=== PATIENT | female | born 1985 | race Two or more races ===

== ENCOUNTER 2024-08-02 09:45 | Inpatient (IN) | payer OTHER ==
[~2024-08-02] VITALS: Ht 165.1 cm; Wt 99.8 kg
[~2024-08-02 09:45] MED LIST: ALLEGRA ALLERG180 MG PO
[2024-08-02 10:56] VITALS: BP 93/56
[2024-08-02 11:07] VITALS: BP 118/82
[2024-08-02 11:15] LABS: HEMATOCRIT 38.2 % (36.0-45.00); HEMOGLOBIN 12.5 g/dL (12.0-15.00); MEAN CELL VOLUME 79.5 fL (80.00-100.00); MEAN CORPUSCULAR HEMOGLOBIN 26.1 pg (27.00-32.0); MEAN CORPUSCULAR HGB CONC 32.8 g/dl (32.0-36.0); PLATELET COUNT 412 K/uL (150-450); RED CELL DISTRIBUTION WIDTH 15.3 % (11.5-14.5)
[2024-08-02 11:16] LABS: PH,URINE 6.5 (5.0-8.0); URINE APPEARANCE Cloudy; URINE BILIRRUBIN Negative (NEGATIVE); URINE BLOOD Negative; URINE COLOR Yellow; URINE GLUCOSE Negative (NEGATIVE); URINE KETONE Negative (NEGATIVE); URINE LEUKOCYTE Small; URINE NITRATE Negative; URINE PROTEIN Negative (NEGATIVE); URINE UROBILINOGEN 0.2 E.U./dl
[2024-08-02 11:17] LABS: URINE BACTERIA 3079.5 uL (0.0-1933); URINE RBC 88.3 uL (0.0-20.8); URINE WBC 36.7 uL (0.0-23.2)
[2024-08-02 11:28] LABS: URINE CAST 0.14 uL (0.0-1.40)
[2024-08-02 11:31] LABS: URINE CRYSTALS MANY /HPF
[2024-08-02 11:35] LABS: PARTIAL THROMBOPLASTIN TIME 28.2 SECONDS (22.0-34.0); PROTHROMBIN TIME 10.9 SECONDS (9.0-11.5)
[2024-08-02 11:53] LABS: ALBUMIN 3.2 gm/dL (3.4-5.0); BILIRUBIN TOTAL 0.5 mg/dL (0.3-1.2); CALCIUM 9.2 mg/dL (8.5-10.1); CREATININE SERUM 0.75 mg/dL (0.55-1.02); GFR 86.03; GLOBULINA 3.6 G/DL (2.4-3.5); POTASSIUM 4.31 mEq/L (3.5-5.1); TOTAL PROTEIN 6.8 gm/dL (6.4-8.2)
[2024-08-15] MEDS ORDERED: CEFOXITIN SODIUM 2,000 MG VIAL IV ONE ×2 (06:36→08:45)
[2024-08-15] MEDS ORDERED: CHLORHEXIDINE GLUCONATE 120 ML BOTTLE TOP ONE ×2 (06:58→08:45)
[2024-08-15] MEDS ORDERED: BUPIVACAINE HCL/Mpf 0.5% 10ML VIAL ONE (06:59)
[2024-08-15] MEDS ORDERED: POVIDONE-IODINE 118 ML BOTT TOP ONE (06:59)
[2024-08-15] MEDS ORDERED: HEMOSTATIC MATRIX 1 KIT KIT TOP ONE (08:53)
[2024-08-15] MEDS ORDERED: SURGIFLO APPLICATOR 1 EACH APPL TOP ONE (08:53)
[2024-08-15] MEDS ORDERED: SUGAMMADEX SODIUM 200 MG/2 ML VIAL IV ONE (09:20)
[2024-08-15] MEDS ORDERED: MORPHINE SULFATE 4 MG/ML VIAL IV ONE ×2 (10:25→10:55)
[2024-08-15] MEDS ORDERED: MORPHINE SULFATE 4 MG/ML CARTRIDGE IV SCH (12:00)
[2024-08-15] MEDS ORDERED: PROMETHAZINE HCL 25 MG/ML AMPUL IV SCH (12:00)
[2024-08-15 12:20] VITALS: BP 93/56
[2024-08-15 16:48] VITALS: BP 98/60
[2024-08-15] MEDS ORDERED: ACETAMINOPHEN 500 MG GEL..CAP PO SCH (18:00)
[2024-08-15 18:10] LABS: BASO % 0.2 % (0.1-1.2); EOS # 0.06 (0.04-0.54); EOS % 0.4 % (0.7-7.0); HEMATOCRIT 35.7 % (34.1-44.9); HEMOGLOBIN 11.9 g/dL (11.2-15.7); LYMPH # 1.76 (1.18-3.74); LYMPH % 11.2 % (19.3-53.1); MEAN CORPUSCULAR HEMOGLOBIN 25.8 pg (25.6-32.2); MONO # 0.67 (0.24-0.82); MONO % 4.3 % (4.7-12.5); NEUT # 13.17 (1.56-6.13); NEUT % 83.5 % (34.0-71.1); PLATELET COUNT 310 K/uL (163-369); RED BLOOD COUNT 4.62 M/uL (3.93-5.22); RED CELL DISTRIBUTION WIDTH 14.6 % (11.6-14.4)
[2024-08-15] MEDS ORDERED: SIMETHICONE 125 MG CAPSULE PO SCH (21:00)
[2024-08-15] MEDS ORDERED: GABAPENTIN 300 MG CAPSULE PO SCH (21:00)
[2024-08-16 00:59] VITALS: BP 100/55
[2024-08-16 04:56] VITALS: BP 93/60
[2024-08-16] MEDS ORDERED: PAIN RELIEVER500 M2 PO (06:45)
[2024-08-16] MEDS ORDERED: SIMETHICONE125 M1 PO (06:46)
[2024-08-16] MEDS ORDERED: GABAPENTIN300 MG PO (06:46)
[2024-08-16 08:00] VITALS: BP 90/60
== END 2024-08-16 10:12 | disposition home or self-care (01) | DRG 743 ==
LOC: ADM 09:45 → OB/GYN 08-08 08:30 → EDSTATUS 08-08 09:45 → OB/GYN 08-08 09:45 → CIR.AMB 08-08 09:45 → O/R 08-15 05:34 → OB/GYN 08-15 11:45
PROVIDERS: ADMIT Obstetrics & Gynecology; ATTEND Obstetrics & Gynecology
PROC: 0UT9FZZ Resection of Uterus, Via Natural or Artificial Opening With Percutaneous Endoscopic Assistance (ICD-10-PCS; principal; 2024-08-15 07:00)
DX: D25.2 Subserosal leiomyoma of uterus (principal); D25.0 Submucous leiomyoma of uterus; N93.9 Abnormal uterine and vaginal bleeding, unspecified; N84.1 Polyp of cervix uteri

== ENCOUNTER 2024-08-17 17:34 | Emergency (ER) | payer OTHER ==
[~2024-08-17] VITALS: Ht 165.1 cm; Wt 99.8 kg
[~2024-08-17 17:34] MED LIST changes: +GABAPENTIN300 MG PO; +PAIN RELIEVER500 M2 PO; +SIMETHICONE125 M1 PO
[2024-08-17] MEDS ORDERED: 0.9 % SODIUM CHLORIDE 1,000 ML IV STA (19:06)
[2024-08-17 19:44] LABS: BASO % 0.4 % (0.1-1.2); EOS # 0.16 (0.04-0.54); EOS % 1.9 % (0.7-7.0); HEMOGLOBIN 11.9 g/dL (11.2-15.7); LYMPH # 1.08 (1.18-3.74); LYMPH % 12.8 % (19.3-53.1); MEAN CORPUSCULAR HEMOGLOBIN 25.2 pg (25.6-32.2); MONO # 0.66 (0.24-0.82); MONO % 7.8 % (4.7-12.5); NEUT # 6.47 (1.56-6.13); NEUT % 76.9 % (34.0-71.1); PLATELET COUNT 319 K/uL (163-369); RED BLOOD COUNT 4.73 M/uL (3.93-5.22); RED CELL DISTRIBUTION WIDTH 14.5 % (11.6-14.4)
[2024-08-17 19:58] LABS: PH,URINE 6.5 (5.0-8.0); URINE APPEARANCE Cloudy; URINE BILIRRUBIN Negative (NEGATIVE); URINE BLOOD NHT; URINE COLOR Yellow; URINE GLUCOSE Negative (NEGATIVE); URINE KETONE Negative (NEGATIVE); URINE LEUKOCYTE Small; URINE NITRATE Negative; URINE PROTEIN Trace (NEGATIVE)
[2024-08-17 19:59] LABS: INR 1.01; PARTIAL THROMBOPLASTIN TIME 29.4 SECONDS (22.0-34.0)
[2024-08-17 20:01] LABS: URINE BACTERIA 8329.2 uL (0.0-1933); URINE EPITHELIAL CELLS 135.9 uL (0.0-38.8); URINE RBC 17.5 uL (0.0-20.8); URINE WBC 51.7 uL (0.0-23.2)
[2024-08-17 20:04] LABS: URINE CAST 0.29 uL (0.0-1.40)
[2024-08-17 20:04] LABS: ALBUMIN 2.7 gm/dL (3.4-5.0); BILIRUBIN TOTAL 0.3 mg/dL (0.3-1.2); CALCIUM 8.5 mg/dL (8.5-10.1); CREATININE SERUM 0.78 mg/dL (0.55-1.02); GFR 82.22; GLOBULINA 4.3 G/DL (2.4-3.5); POTASSIUM 3.99 mEq/L (3.5-5.1)
== END 2024-08-17 21:47 | disposition home or self-care (01) ==
LOC: ER 18:03
DX: G89.18 Other acute postprocedural pain (principal); J06.9 Acute upper respiratory infection, unspecified; Z88.8 Allergy status to other drugs, medicaments and biological substances; Z88.6 Allergy status to analgesic agent; Z91.013 Allergy to seafood